=== PATIENT | male | born 1980 | race Caucasian/White ===

== ENCOUNTER 2016-12-08 20:44 | Emergency (ER) | payer OTHER ==
[2016-12-08] MEDS ORDERED: traMADol HCl 50 MG TAB ONE (21:29)
--- NOTE | 2016-12-08 23:35 | RAD ---
LUMBAR SPINE THREE VIEWS: Date: 12-08-16 History: Mild scoliosis convex left is noted. No fracture or disc space narrowing was appreciated. All spinus processes appeared intact. There is some loss of the normal lumbar lordosis which could be due to muscle spasm. There is a large amount of fecal material in the colon. There is probably also a considerable amount of retained food material in the stomach. IMPRESSION: No acute bony finding. POS: HOME
== END 2016-12-08 22:32 | disposition home or self-care (01) ==
LOC: BURERS 20:44
DX: S33.5XXA Sprain of ligaments of lumbar spine, initial encounter (principal); F17.210 Nicotine dependence, cigarettes, uncomplicated; W22.8XXA Striking against or struck by other objects, initial encounter
CPT/HCPCS: 72100

== ENCOUNTER 2016-12-13 16:31 | Emergency (ER) | payer OTHER ==
[2016-12-13] MEDS ORDERED: Lidocaine 1% 20 ML MDV ONE (16:33)
[2016-12-13] MEDS ORDERED: Bacitracin Zinc 1 Packet ONE (16:54)
== END 2016-12-13 17:02 | disposition home or self-care (01) ==
LOC: BURERS 16:31
DX: S61.210A Laceration without foreign body of right index finger without damage to nail, initial encounter (principal); F17.210 Nicotine dependence, cigarettes, uncomplicated; W45.8XXA Other foreign body or object entering through skin, initial encounter
CPT/HCPCS: 12001; J2001

== ENCOUNTER 2018-12-17 15:48 | Emergency (ER) | payer OTHER ==
[2018-12-17] MEDS ORDERED: Adacel (T-DAP) 0.5 ML SYRINGE ONE (16:00)
[2018-12-17] MEDS ORDERED: Ibuprofen 800 MG TAB ONE (16:00)
[2018-12-17] MEDS ORDERED: Bacitracin Zinc 1 Packet ONE (16:00)
== END 2018-12-17 16:11 | disposition home or self-care (01) ==
LOC: BURERS 15:48
DX: T22.212A Burn of second degree of left forearm, initial encounter (principal); F17.210 Nicotine dependence, cigarettes, uncomplicated; X17.XXXA Contact with hot engines, machinery and tools, initial encounter
CPT/HCPCS: 16020; 90471; 90715

== ENCOUNTER 2020-06-26 21:43 | Emergency (ER) | payer OTHER ==
[2020-06-26] MEDS ORDERED: valACYclovir 500 MG TAB ONE (22:05)
[2020-06-26] MEDS ORDERED: Bacitracin 1 PK ONE (22:05)
== END 2020-06-26 22:17 | disposition home or self-care (01) ==
LOC: BURERS 21:43
DX: B02.9 Zoster without complications (principal); L01.00 Impetigo, unspecified; F17.220 Nicotine dependence, chewing tobacco, uncomplicated
CPT/HCPCS: 99282